=== PATIENT | male | born 1935 | race Caucasian/White ===

== ENCOUNTER 2017-05-28 09:36 | Inpatient (IN) | payer OTHER, MEDICARE ==
[~2017-05-28] VITALS: Ht 170.2 cm; Wt 66.3 kg
[2017-05-28 10:23] LABS: EOSINOPHIL (%) 6.1 % (0-5); EOSINOPHIL COUNT 0.4 K/uL (0-0.3); HEMATOCRIT 41.6 % (38.0-50.0); IMMATURE GRANULOCYTE (%) 0.1 % (0.0-0.7); INSTRUMENT ABS NEUTROPHIL CT 4.6 K/uL; LYMPHOCYTE COUNT 0.9 K/uL (1.0-2.8); MCH 31.9 PG (29.0-34.0); MCHC 33.2 G/DL (30.0-36.0); MCV 96.3 FL (86-99); MEAN PLAT.VOLUME 9.9 uM^3 (9.0-12.4); MONOCYTE (%) 11.1 % (3-12); MONOCYTE COUNT 0.7 K/uL (0-0.8); NEUTROPHIL (%) 68.5 % (45-76); NEUTROPHIL COUNT 4.6 K/uL (1.8-6.4); PLATELET COUNT 322 K/uL (156-360); RBC DIS.WIDTH-CV 12.5 % (11.8-14.6); RBC DIS.WIDTH-SD 44.9 % (39-53); RED BLOOD COUNT 4.32 M/uL (4.00-5.50); WHITE BLOOD COUNT 6.7 K/uL (4.1-10.2)
[2017-05-28 10:56] LABS: CHLORIDE 107 mEq/L (99-109); POTASSIUM 4.8 mEq/L (3.7-5.4); SODIUM 143 mEq/L (136-147)
[2017-05-28 10:57] LABS: GLUCOSE 96 mg/dL (70-99)
[2017-05-28 10:59] LABS: ANION GAP 7 MEQ/L (2-14)
[2017-05-28 11:01] LABS: GFR ESTIMATE (CALCULATED) > 59 mL/min/
[2017-05-28 11:02] LABS: UREA NITROGEN (BUN) 18 mg/dL (9-23)
[2017-05-28] MEDS ORDERED: ADVAIR 250/501 DISK IH (11:54)
[2017-05-28] MEDS ORDERED: CORTEF5 M1 PO (12:18)
[2017-05-28] MEDS ORDERED: ASCORBIC ACID100 MG PO (12:19)
[2017-05-28] MEDS ORDERED: MYRBETRIQ25 MG PO (12:19)
[2017-05-28] MEDS ORDERED: VITAMIN D2000 UNI1 PO (12:19)
[2017-05-28] MEDS ORDERED: MEN'S MULTI-VI1 EACH PO (12:20)
[2017-05-28] MEDS ORDERED: TYLENOL REGULA325 MG PO (12:20)
[2017-05-28] MEDS ORDERED: VITAMIN B COMP1 EACH PO (12:20)
[2017-05-28 15:55] VITALS: BP 135/75
[2017-05-28 19:13] LABS: TROP-I INTERPRETATION NEGATIVE; TROPONIN-I 0.02 ng/mL (0.0-0.30)
[2017-05-28 20:34] VITALS: BP 133/71
[2017-05-29] VITALS (7 sets, daily range): BP systolic 105–120; BP diastolic 55–64
[2017-05-29 05:46] LABS: HEMATOCRIT 36.8 % (38.0-50.0); MCH 32.1 PG (29.0-34.0); MCHC 33.2 G/DL (30.0-36.0); MCV 96.8 FL (86-99); MEAN PLAT.VOLUME 10.1 uM^3 (9.0-12.4); PLATELET COUNT 290 K/uL (156-360); RBC DIS.WIDTH-CV 12.4 % (11.8-14.6); RBC DIS.WIDTH-SD 44.2 % (39-53); WHITE BLOOD COUNT 9.9 K/uL (4.1-10.2)
[2017-05-29] MEDS ORDERED: ENDOCET 5-3251 EACH PO (14:04)
[2017-05-30 00:06] VITALS: BP 110/62
[2017-05-30] MEDS ORDERED: TRAMADOL HCL50 MG PO (07:35)
[2017-05-30 08:46] LABS: FASTING STATUS NONFASTING
[2017-05-30 09:17] LABS: HDL CHOLESTEROL 45 MG/DL (Desirable>=40); LDL CHOLESTEROL 87 mg/dL (Desirable<100); NON-HDL CHOLESTEROL 103 mg/dL (Desirable<160); TOTAL CHOLESTEROL 148 mg/dL (Desirable<200); TRIGLYCERIDES 81 MG/DL (Normal: <150)
== END 2017-05-30 09:59 | disposition home health service (06) | DRG 64 ==
LOC: EME 09:36 → 4EAST 11:58 → EDOF 11:58 → 4EAST 11:58 → ENRESERV 12:02 → 4EAST 15:38 → 5SOUTH 05-29 15:37 → ENRESERV 05-29 16:36 → 5SOUTH 05-29 21:58
PROVIDERS: Emergency Medicine; Hospitalist; Internal Medicine
DX: I60.9 Nontraumatic subarachnoid hemorrhage, unspecified (principal); G93.6 Cerebral edema; E85.4 Organ-limited amyloidosis; I68.0 Cerebral amyloid angiopathy; I61.1 Nontraumatic intracerebral hemorrhage in hemisphere, cortical; H53.8 Other visual disturbances; J45.909 Unspecified asthma, uncomplicated; Z95.0 Presence of cardiac pacemaker; Z82.3 Family history of stroke
CPT/HCPCS: 70450; 80048; 80061; 84484; 85025; 85027; 86850; 86900; 86901; 94640; 94640 76; 99281; 99285; G0378; J2270; J2405; J7030; S0028

== ENCOUNTER 2017-08-21 07:12 | Inpatient (IN) | payer OTHER, MEDICARE ==
[~2017-08-21] VITALS: Ht 170.2 cm; Wt 71.5 kg
[~2017-08-21 07:12] MED LIST: ADVAIR 250/501 DISK IH; CORTEF5 M1 PO; ENDOCET 5-3251 EACH PO; MEN'S MULTI-VI1 EACH PO; MYRBETRIQ25 MG PO; TRAMADOL HCL50 MG PO; TYLENOL REGULA325 MG PO; VITAMIN B COMP1 EACH PO; VITAMIN C250 MG PO; VITAMIN D31000 UNI2 PO
[2017-08-21 07:34] LABS: MCH 33.3 PG (29.0-34.0); MCHC 34.4 G/DL (30.0-36.0); MCV 96.8 FL (86-99); MEAN PLAT.VOLUME 10.1 uM^3 (9.0-12.4); PLATELET COUNT 315 K/uL (156-360); RBC DIS.WIDTH-SD 46.2 % (39-53); RED BLOOD COUNT 4.44 M/uL (4.00-5.50); WHITE BLOOD COUNT 10.1 K/uL (4.1-10.2)
[2017-08-21 08:11] LABS: ANION GAP 7 MEQ/L (2-14); CHLORIDE 106 MEQ/L (99-109); GFR ESTIMATE (CALCULATED) > 59 mL/min/ (58.99-99999); GLUCOSE 99 mg/dL (70-99); SAMPLE HEMOLYSIS CHECK 0; SAMPLE ICTERIC CHECK 0; SAMPLE LIPEMIA CHECK 0; SODIUM 141 MEQ/L (136-147); UREA NITROGEN (BUN) 14 mg/dL (9-23)
[2017-08-21] MEDS ORDERED: DIVALPROEX SOD500 M1 PO (09:51)
[2017-08-21] MEDS ORDERED: LORAZEPAM0.5 MG PO (09:52)
[2017-08-21 11:05] LABS: INTER. NORMALIZED RATIO 1.1; PROTHROMBIN TIME 12.1 SEC (10.2-12.9)
[2017-08-21 11:08] LABS: PTT 27.8 SEC (25-37)
[2017-08-21 17:34] VITALS: BP 140/70
[2017-08-21 20:08] VITALS: BP 125/58
[2017-08-21 23:46] VITALS: BP 118/66
[2017-08-22 04:42] VITALS: BP 125/70
[2017-08-22 08:24] VITALS: BP 109/64
[2017-08-22 09:52] LABS: MCH 33.4 PG (29.0-34.0); MCHC 34.4 G/DL (30.0-36.0); MCV 97.2 FL (86-99); MEAN PLAT.VOLUME 10.4 uM^3 (9.0-12.4); PLATELET COUNT 276 K/uL (156-360); RBC DIS.WIDTH-CV 13.2 % (11.8-14.6); RBC DIS.WIDTH-SD 47.2 % (39-53); RED BLOOD COUNT 4.22 M/uL (4.00-5.50); WHITE BLOOD COUNT 10.6 K/uL (4.1-10.2)
[2017-08-22 09:53] LABS: FASTING STATUS NONFASTING
[2017-08-22 10:25] LABS: ALKALINE PHOSPHATASE 57 IU/L (3-129); ANION GAP 10 MEQ/L (2-14); CHLORIDE 105 MEQ/L (99-109); GFR ESTIMATE (CALCULATED) > 59 mL/min/ (58.99-99999); HDL CHOLESTEROL 38 MG/DL (Desirable>=40); LDL CHOLESTEROL 82 mg/dL (Desirable<100); NON-HDL CHOLESTEROL 101 mg/dL (Desirable<160); POTASSIUM 4.1 MEQ/L (3.7-5.4); SAMPLE HEMOLYSIS CHECK 0; SAMPLE ICTERIC CHECK 0; SAMPLE LIPEMIA CHECK 0; SODIUM 140 MEQ/L (136-147); TOTAL BILIRUBIN 1.4 MG/DL (0.0-1.0); TOTAL CHOLESTEROL 139 mg/dL (Desirable<200); TRIGLYCERIDES 96 MG/DL (Normal: <150); UREA NITROGEN (BUN) 15 mg/dL (9-23)
[2017-08-22 10:27] LABS: GLUCOSE 153 mg/dL (70-99)
[2017-08-22 11:25] LABS: Estimated Average Glucose 117 mg/dL (70-123); HEMOGLOBIN A1c (GLYCOHEMOGLOB) 5.7 % HGB (Below 5.7)
[2017-08-22 12:13] VITALS: BP 131/69
[2017-08-22 16:45] VITALS: BP 145/76
[2017-08-22 17:43] LABS: ADD MIUA? NO; BILIRUBIN NEGATIVE; BLOOD NEGATIVE; COLOR YELLOW ((YELLOW)); GLUCOSE (STRIP) NEGATIVE; KETONES 20; LEUKOCYTES NEGATIVE; NITRITE NEGATIVE; PROTEIN (STRIP) 30; SPECIFIC GRAVITY 1.029 (1.000-1.030); UCUL ADDED? NO; UROBILINOGEN 0.2 MG/DL (0.2-1.0)
[2017-08-22 21:00] VITALS: BP 135/74
[2017-08-23 04:00] VITALS: BP 127/68
[2017-08-23 05:48] LABS: BASOPHIL COUNT 0.1 K/uL (0-0.1); EOSINOPHIL (%) 1.4 % (0-5); EOSINOPHIL COUNT 0.1 K/uL (0-0.3); HEMATOCRIT 40.4 % (38.0-50.0); IMMATURE GRANULOCYTE (%) 0.6 % (0.0-0.7); IMMATURE GRANULOCYTE COUNT 0.1 K/uL; INSTRUMENT ABS NEUTROPHIL CT 6.2 K/uL; LYMPHOCYTE COUNT 1.1 K/uL (1.0-2.8); MCHC 33.4 G/DL (30.0-36.0); MCV 95.7 FL (86-99); MEAN PLAT.VOLUME 10.4 uM^3 (9.0-12.4); MONOCYTE (%) 13.2 % (3-12); MONOCYTE COUNT 1.2 K/uL (0-0.8); NEUTROPHIL (%) 71.6 % (45-76); NEUTROPHIL COUNT 6.2 K/uL (1.8-6.4); PLATELET COUNT 280 K/uL (156-360); RBC DIS.WIDTH-SD 45.9 % (39-53); RED BLOOD COUNT 4.22 M/uL (4.00-5.50); WHITE BLOOD COUNT 8.7 K/uL (4.1-10.2)
[2017-08-23 08:59] LABS: ANION GAP 9 MEQ/L (2-14); CHLORIDE 105 MEQ/L (99-109); GFR ESTIMATE (CALCULATED) > 59 mL/min/ (58.99-99999); POTASSIUM 3.9 MEQ/L (3.7-5.4); SAMPLE HEMOLYSIS CHECK 0; SAMPLE ICTERIC CHECK 0; SAMPLE LIPEMIA CHECK 0; SODIUM 140 MEQ/L (136-147); UREA NITROGEN (BUN) 19 mg/dL (9-23)
[2017-08-23 09:02] LABS: GLUCOSE 85 mg/dL (70-99)
[2017-08-23 09:10] VITALS: BP 102/55
[2017-08-23] MEDS ORDERED: PRAVASTATIN SOD40 MG PO (12:15)
[2017-08-23 13:00] VITALS: BP 125/59
[2017-08-27] MEDS ORDERED: DIVALPROEX SOD500 M1 PO (14:09)
[2017-08-27] MEDS ORDERED: LORAZEPAM0.5 MG PO (14:09)
== END 2017-08-23 13:48 | disposition home or self-care (01) | DRG 65 ==
LOC: EME 07:12 → EDOF 08:53 → 4EAST 08:53 → ENRESERV 08:56 → CANRESERV 08:56 → EDOF 10:34 → ENRESERV 10:51 → 4EAST 17:19
PROVIDERS: Hospitalist
DX: I63.9 Cerebral infarction, unspecified (principal); J45.909 Unspecified asthma, uncomplicated; Z95.0 Presence of cardiac pacemaker; I68.0 Cerebral amyloid angiopathy; I10 Essential (primary) hypertension; H54.7 Unspecified visual loss; E85.4 Organ-limited amyloidosis; H53.40 Unspecified visual field defects; Z86.73 Personal history of transient ischemic attack (TIA), and cerebral infarction without residual deficits
CPT/HCPCS: 70450; 70496; 71020; 80048; 80053; 80061; 81003; 83036; 85025; 85027; 85610; 85730; 87040; 93005; 94640; 99281; 99285

== ENCOUNTER 2018-03-05 00:29 | Observation (INO) | payer OTHER, MEDICARE ==
[~2018-03-05] VITALS: Ht 170.2 cm; Wt 77.0 kg
[~2018-03-05 00:29] MED LIST changes: +DIVALPROEX SOD500 M1 PO; +LORAZEPAM0.5 MG PO; +PRAVASTATIN SOD40 MG PO
[2018-03-05 00:51] LABS: BASOPHIL (%) 0.7 % (0-1); BASOPHIL COUNT 0.1 K/uL (0-0.1); EOSINOPHIL (%) 8.1 % (0-5); EOSINOPHIL COUNT 0.6 K/uL (0-0.3); HEMATOCRIT 40.9 % (38.0-50.0); HEMOGLOBIN 14.3 G/DL (12.5-16.6); IMMATURE GRANULOCYTE (%) 0.4 % (0.0-0.7); LYMPHOCYTE (%) 18.5 % (15-42); LYMPHOCYTE COUNT 1.3 K/uL (1.0-2.8); MCH 32.9 PG (29.0-34.0); MCV 94.2 FL (86-99); MONOCYTE (%) 11.6 % (3-12); MONOCYTE COUNT 0.8 K/uL (0-0.8); NEUTROPHIL (%) 60.7 % (45-76); NEUTROPHIL COUNT 4.4 K/uL (1.8-6.4); PLATELET COUNT 354 K/uL (156-360); RBC DIS.WIDTH-CV 12.3 % (11.8-14.6); RBC DIS.WIDTH-SD 43.3 % (39-53); RED BLOOD COUNT 4.34 M/uL (4.00-5.50); WHITE BLOOD COUNT 7.2 K/uL (4.1-10.2)
[2018-03-05 01:17] LABS: AMYLASE 63 IU/L (1-118); CHLORIDE 109 mEq/L (99-109); POTASSIUM 4.2 mEq/L (3.7-5.4); SODIUM 141 mEq/L (136-147); TROP-I INTERPRETATION NEGATIVE; TROPONIN-I 0.02 ng/mL (0.0-0.30)
[2018-03-05 01:18] LABS: GLUCOSE 85 mg/dL (70-99)
[2018-03-05 01:22] LABS: GFR ESTIMATE (CALCULATED) > 59 mL/min/ (58.99-99999); SERUM ETHYL ALCOHOL < 10 mg/dL
[2018-03-05 01:23] LABS: UREA NITROGEN (BUN) 20 mg/dL (9-23)
[2018-03-05 01:25] LABS: LIPASE 13 U/L (1.0-51.0)
[2018-03-05 01:33] LABS: PTT 27.4 SEC (25-37)
[2018-03-05 02:28] LABS: MAGNESIUM 2.5 mg/dL (1.3-2.7)
[2018-03-05 04:07] LABS: APPEARANCE CLEAR ((CLEAR)); BILIRUBIN NEGATIVE; BLOOD NEGATIVE; COLOR STRAW ((YELLOW)); GLUCOSE (STRIP) NEGATIVE; KETONES NEGATIVE; LEUKOCYTES NEGATIVE; NITRITE NEGATIVE; PROTEIN (STRIP) NEGATIVE; SPECIFIC GRAVITY 1.006 (1.000-1.030); UCUL ADDED? NO; UROBILINOGEN 0.2 MG/DL (0.2-1.0)
[2018-03-05 08:50] VITALS: BP 135/90
[2018-03-05 09:22] LABS: HDL CHOLESTEROL 42 MG/DL (Desirable>=40); LDL CHOLESTEROL 103 mg/dL (Desirable<100); NON-HDL CHOLESTEROL 123 mg/dL (Desirable<160); TOTAL CHOLESTEROL 165 mg/dL (Desirable<200); TRIGLYCERIDES 98 MG/DL (Normal: <150)
[2018-03-05 09:59] LABS: HEMOGLOBIN A1c (GLYCOHEMOGLOB) 5.5 % (Below 5.7)
[2018-03-05 11:56] VITALS: BP 132/89
[2018-03-05 20:08] VITALS: BP 125/67
[2018-03-06 00:27] VITALS: BP 120/71
[2018-03-06 03:58] VITALS: BP 107/62
[2018-03-06 07:22] VITALS: BP 107/59
== END 2018-03-06 11:13 | disposition home or self-care (01) ==
LOC: EME 00:29 → EDOF 06:48 → ENRESERV 06:49 → 5SOUTH 08:34
PROVIDERS: Emergency Medicine; Nurse Practitioner Adult Health
DX: E86.0 Dehydration (principal); T67.5XXA Heat exhaustion, unspecified, initial encounter; I65.23 Occlusion and stenosis of bilateral carotid arteries; Z86.73 Personal history of transient ischemic attack (TIA), and cerebral infarction without residual deficits; Z95.0 Presence of cardiac pacemaker; R53.1 Weakness; I10 Essential (primary) hypertension; J45.909 Unspecified asthma, uncomplicated; Z82.3 Family history of stroke; Z79.82 Long term (current) use of aspirin; Z88.5 Allergy status to narcotic agent
CPT/HCPCS: 70450; 71045; 80047; 80048; 80061; 81003; 82150; 83036; 83690; 83735; 84484; 85025; 85610; 85730; 86850; 86900; 86901; 93005; 93880; 94640; 99281; 99285; G0378; G0480; J1644; J7030